=== PATIENT | male | born 1940 | race Caucasian/White ===

== ENCOUNTER → 2018-06-15 | Outpatient (CLI) | payer MEDICARE, BC ==
[~2018-06-15] MED LIST: FLOMAX0.4 MG PO; ICAPS PLUS PO; PRIMADONE; TYLENOL325 MG PO; VICOPROFEN 2001 EAC1 PO
== END ==
LOC: M.MRI 13:41
DX: I67.82 Cerebral ischemia (principal); G62.9 Polyneuropathy, unspecified; G89.29 Other chronic pain; R61 Generalized hyperhidrosis; I10 Essential (primary) hypertension; M54.41 Lumbago with sciatica, right side; Z82.49 Family history of ischemic heart disease and other diseases of the circulatory system

== ENCOUNTER → 2018-09-28 | Outpatient (CLI) | payer MEDICARE, BC | LOC: M.RAD 14:26 | DX: N64.4 Mastodynia (principal); I10 Essential (primary) hypertension; H53.9 Unspecified visual disturbance; Z88.8 Allergy status to other drugs, medicaments and biological substances ==

== ENCOUNTER → 2018-12-21 | Outpatient (CLI) | payer MEDICARE, BC | LOC: M.CT 15:00 | DX: S92.424A Nondisplaced fracture of distal phalanx of right great toe, initial encounter for closed fracture (principal); M19.071 Primary osteoarthritis, right ankle and foot; G31.9 Degenerative disease of nervous system, unspecified; W19.XXXA Unspecified fall, initial encounter; Y93.89 Activity, other specified; Y92.89 Other specified places as the place of occurrence of the external cause; Y99.8 Other external cause status ==

== ENCOUNTER → 2018-12-29 | Outpatient (CLI) | payer MEDICARE, BC | LOC: M.MRI 09:00 | DX: G31.9 Degenerative disease of nervous system, unspecified (principal) ==

== ENCOUNTER → 2019-01-12 | Outpatient (CLI) | payer MEDICARE, BC | LOC: M.MRI 08:24 | DX: M51.16 Intervertebral disc disorders with radiculopathy, lumbar region (principal); M47.812 Spondylosis without myelopathy or radiculopathy, cervical region; M48.061 Spinal stenosis, lumbar region without neurogenic claudication; M47.26 Other spondylosis with radiculopathy, lumbar region; I10 Essential (primary) hypertension; G62.9 Polyneuropathy, unspecified; M79.674 Pain in right toe(s); M50.80 Other cervical disc disorders, unspecified cervical region; M25.78 Osteophyte, vertebrae; M48.02 Spinal stenosis, cervical region ==

== ENCOUNTER → 2020-07-11 | Outpatient (CLI) | payer MEDICARE, BC | LOC: M.MRI 12:38 | PROVIDERS: ATTEND Neurological Surgery | DX: I67.1 Cerebral aneurysm, nonruptured (principal) ==